=== PATIENT | male | born 1935 | race Hispanic/Latino ===

== ENCOUNTER → 2018-08-23 | Outpatient (CLI) | payer MEDICARE ==
[~2018-08-23] MED LIST: Z.0.CARVEDILOL3.125 PO; Z.0.DIGOXIN125 MCG PO; Z.0.FOLIC ACID1 MG PO; Z.0.FUROSEMIDE40 MG PO; Z.0.MULTIVITAMINS1 E; Z.0.RAMIPRIL5 MG PO; Z.0.SIMVASTATIN20 MG PO; Z.0.SPIRONOLACTONE25 PO; Z.0.WARFARIN SODIUM5 PO; Z.2.FERROUS SULFAT32 PO; [UNRECOGNIZED DRUG - OTHER] PO
--- NOTE | 2018-08-23 14:00 | Diagnostic Imaging Report ---
EXAMINATION: ABDOMEN-1VIEW (KUB) INDICATION: Follow-up stone. COMPARISON: KUB 12/15/2011. FINDINGS: Bowel gas partially obscures visualization of the kidneys. Interval removal of left sided internal ureteral stent. Fragmented left upper pole renal calculi measuring up to 2.0 x 1.7 cm aggregate is noted. Additional 3-4 mm left lower pole renal calcifications are present. No evidence of calcifications overlying the expected course of the ureters. There is a nonobstructive bowel gas pattern. There is no free intraperitoneal air. No acute bony findings. Mild degenerative changes of the lumbar spine and bilateral hips. IMPRESSION: Fragmented left upper pole renal calculus measuring up to 2.0 x 1.7 cm and additional 3-4 mm left lower pole renal stones. Signed by: Dr. Jose David Sanders MD on 08/23/2018 1:57 PM
== END ==
LOC: RAD 13:07
PROVIDERS: ATTEND Urology
DX: N20.0 Calculus of kidney (principal)
CPT/HCPCS: 74018

== ENCOUNTER → 2018-09-24 | Outpatient (CLI) | payer MEDICARE ==
[~2018-09-24] MED LIST changes: +IOPAMIDOL 370 MG/ML 200 ML INFUS..BTL INJ ONE; +SODIUM CHLORIDE 0.9% 50ML 50 ML ONE
--- NOTE | 2018-09-24 09:50 | Diagnostic Imaging Report ---
EXAMINATION: CHEST 2 VIEWS INDICATION: ^[id number] ^0900 ^MALIGNANT NEOPLASM OF PROSTATE COMPARISON: None available. FINDINGS: PA and lateral views TUBES and LINES: None. LUNGS: Lungs are well inflated. 0.6 cm left upper lobe nodular density, probably calcified granuloma. There is no evidence of pneumonia or pulmonary edema. PLEURA: No pleural effusion or pneumothorax. HEART AND MEDIASTINUM: The cardiomediastinal silhouette is mildly enlarged. Aorta is calcified and mildly tortuous. BONES AND SOFT TISSUES: No acute osseous lesion. Degenerative changes of thoracic spine. Soft tissues are unremarkable. UPPER ABDOMEN: No free air under the diaphragm. IMPRESSION: No acute thoracic abnormality. 0.6 cm left upper lobe nodular density, probably a calcified granuloma. For evaluation of metastatic disease, recommend chest CT. Signed by: Dr. Kenny Vega MD on 09/24/2018 9:47 AM
[2018-09-24 09:52] LABS: BLOOD UREA NITROGEN 19 mg/dL (7-26); BUN/CREATININE RATIO 23 (6-25); CREATININE, SERUM 0.83 mg/dL (0.72-1.25); EST GLOMERULAR FILTRATION RATE > 60 ML/MIN (60-)
--- NOTE | 2018-09-24 10:48 | Diagnostic Imaging Report ---
EXAM: CT Abdomen and Pelvis WITH contrast INDICATION: Prostate cancer COMPARISON: KUB 08/23/2018. Report from CT abdomen/pelvis 10/27/2011, however the images are not available for review at the time of the dictation. TECHNIQUE: Abdomen and pelvis were scanned utilizing a multidetector helical scanner from the lung base to the pubic symphysis after administration of IV contrast. Coronal and sagittal reformations were obtained. Routine protocol was performed. Dose modulation, iterative reconstruction, and/or weight based adjustment of the mA/kV was utilized to reduce the radiation dose to as low as reasonably achievable. IV CONTRAST: 100 cc of Isovue 370 RADIATION DOSE: Total DLP: 189 mGy*cm COMPLICATIONS: None FINDINGS: LINES and TUBES: None. LOWER THORAX: Patchy dependent atelectasis in the lower lobes. There is soft tissue density in the right lower lobe measuring up to 1.6 cm with a somewhat triangular contour and associated linear opacity, likely representing an area of scarring and atelectasis given mild volume loss. While images are not available for review, a similar opacity was noted on report from CT abdomen on 10/27/2011. Cardiomegaly. HEPATOBILIARY: No focal hepatic lesions. No biliary ductal dilation. GALLBLADDER: No radio-opaque stones or sludge. No wall thickening. SPLEEN: No splenomegaly. PANCREAS: No focal masses or ductal dilatation. ADRENALS: No adrenal nodules KIDNEYS/URETERS: There are fragmented calculi in the left upper pole, largest measuring up to 1.4 cm. There is focal hydronephrosis in the left upper pole. Punctate additional 1 to 2 mm left mid and lower pole renal stones. No evidence of right-sided hydronephrosis. GI TRACT: No abnormal distention or evidence of bowel obstruction. There is scattered colonic diverticulosis without CT evidence of diverticulitis. Appendix is normal. Apparent mild thickening of the cecum and ascending colon may reflect underdistention. PELVIC ORGANS/BLADDER: The bladder is unremarkable. Prostatomegaly measuring up to 4.4 cm. LYMPH NODES: No lymphadenopathy. VESSELS: Moderate atherosclerotic calcifications of the abdominal aorta and branch vessels. PERITONEUM / RETROPERITONEUM: No free air or fluid. BONES/SOFT TISSUES: No suspicious lytic or blastic lesions. No acute osseous abnormality. Fat-containing right inguinal hernia. Small right hydrocele. IMPRESSION: No specific evidence of metastatic disease in the abdomen or pelvis. Fragmented left upper pole renal calculi measuring up to 1.4 cm with focal left upper pole hydronephrosis. Additional 1-2 mm non-obstructing renal stones. Right lower lobe soft tissue density with associated volume loss and linear opacity, which may represent a combination of scarring and atelectasis. While images are not available for review, a similar opacity was noted on report from CT abdomen on 10/27/2011. Signed by: Dr. Jose David Sanders MD on 09/24/2018 10:44 AM
== END ==
LOC: CT 08:35
PROVIDERS: ATTEND Urology
DX: C61 Malignant neoplasm of prostate (principal)
CPT/HCPCS: 36415; 71046; 74177; 82565; 84520; Q9967

== ENCOUNTER → 2018-11-08 | Day surgery (SDC) | payer MEDICARE ==
[2018-11-06 09:52] LABS: BASOPHILS % 0.4 % (0.0-1.0); EOSINOPHILS # (AUTO) 0.4 (0.0-0.4); EOSINOPHILS % 8.1 % (0.0-6.0); HEMATOCRIT 42.3 % (38.2-49.6); HEMOGLOBIN 13.6 g/dL (14.0-18.0); LYMPHOCYTES % 22.7 % (18.0-39.1); MEAN CORPUSCULAR HEMOGLOBIN 28.8 pg (28-32); MEAN CORPUSCULAR HGB CONC 32.2 g/dL (31-35); MEAN CORPUSCULAR VOLUME 89.4 fL (81-99); MONOCYTES # (AUTO) 0.5 (0.2-0.8); MONOCYTES % 11.2 % (4.4-11.3); NEUTROPHILS # (AUTO) 2.6 (2.1-6.9); NEUTROPHILS % 57.4 % (38.7-80.0); PLATELET COUNT 130 x10e3/uL (140-360); RED BLOOD COUNT 4.73 x10e6/uL (4.3-5.7); RED CELL DISTRIBUTION WIDTH 13.9 % (11.7-14.4)
[2018-11-06 10:09] LABS: ANION GAP 13.9 mmol/L (8-16); BLOOD UREA NITROGEN 18 mg/dL (7-26); BUN/CREATININE RATIO 21 (6-25); CALCIUM 9.5 mg/dL (8.4-10.2); CARBON DIOXIDE 26 mmol/L (22-29); CHLORIDE 102 mmol/L (98-107); CREATININE, SERUM 0.87 mg/dL (0.72-1.25); EST GLOMERULAR FILTRATION RATE > 60 ML/MIN (60-); GLUCOSE 105 mg/dL (74-118); POTASSIUM 4.9 mmol/L (3.5-5.1); SODIUM 137 mmol/L (136-145)
--- NOTE | 2018-11-06 10:51 | Diagnostic Imaging Report ---
EXAM: ABDOMEN-1VIEW (KUB) DATE: 11/06/2018 9:25 AM INDICATION: Kidney stones COMPARISON: CT abdomen/pelvis, 09/24/2018 FINDINGS: 2 supine views of the abdomen show a normal distribution of air in the small and large bowel. There are small clustered calculi at the upper pole left kidney with overall diameter of 2.2 cm. Apparently this represents a fragmented calculus as noted on previous CT. No other abnormal soft tissue calcifications are seen although the renal areas are obscured by extensive stool in the colon. No obvious calcifications are seen along the expected path of either ureter. No acute bony abnormality. Degenerative changes seen in the lumbar spine and hips. There is linear atelectasis or scarring at the right lung base. IMPRESSION: Small calculus fragments are seen at the upper pole left kidney. No other abnormal calcifications are seen, noting that the renal areas are largely obscured by bowel content. Signed by: Dr. Rush Pimentel M.D. on 11/06/2018 10:48 AM
--- NOTE | 2018-11-06 10:55 | Diagnostic Imaging Report ---
EXAM: CHEST 2 VIEWS DATE: 11/06/2018 9:23 AM INDICATION: Preadmit, kidney stones COMPARISON: Chest x-ray, 09/24/2018 FINDINGS: Lines and tubes: None Heart size normal. There is patchy airspace opacity at the right lung base. 6 mm density again seen in the left upper lobe, likely granuloma based on density. No pleural effusion or pneumothorax. Upper abdomen unremarkable. No acute bony abnormality. IMPRESSION: Patchy airspace opacity has developed at the right lung base, likely representing atelectasis although, in the proper clinical setting, early pneumonia is a consideration. Signed by: Dr. Rush Pimentel M.D. on 11/06/2018 10:51 AM
[~2018-11-08] MED LIST changes: +ACETAMINOPHEN 1000 MG/100 ML IV ONE; +ASPIR 8181 MG PO; +BELLADONNA/OPIUM 30 MG SUPP RC ONE; +CEFTRIAXONE SOD 1 GM/NS 50 ML 50 ML IV ONE; +DESFLURANE 240 ML BTL INH ONE; -IOPAMIDOL 370 MG/ML 200 ML INFUS..BTL INJ ONE; +IOPAMIDOL 610MG/1ML 300 MG/ML VIAL IV ONE; +LIDOCAINE HCL 2% LOCAL INJ 5 ML SDV VIAL INJ ONE; +METFORMIN HCL500 MG PO; +PROPOFOL IV EMULSION 10 MG/ML 20 ML VIAL ONE; -SODIUM CHLORIDE 0.9% 50ML 50 ML ONE
--- OUTSIDE RECORDS SUMMARY | 2018-11-08 05:23 | XMS REPORT ---
Author Author [facility] Address Unknown Phone Unavailable Care Team Providers Care Contact Center Director Name Role Phone CRISTINA SON Unavailable Unavailable Problems This patient has no known problems. Allergies, Adverse Reactions, Alerts This patient has no known allergies or adverse reactions. Medications This patient has no known medications. Results Test Description Test Time Test Comments Text Results Atomic Results Result Comments CHEST 2 VIEWS 2018-11-06 10:48:00 [place] [address] Patient Name: JR NICHOLSON MR #: [id number] : 1935 Age/Sex: 83/M Req #: [id number] Adm Physician: Ordered by: CRISTINA SON MD Report #: [id number] Location: OR Room/Bed: Procedure: [id number] DX/CHEST 2 VIEWS Exam Date: 11/06/18 Exam Time: 0930 REPORT STATUS: Signed EXAM: CHEST 2 VIEWS DATE: 11/06/2018 9:23 AM INDIC ATION: Preadmit, kidney stones COMPARISON: Chest x-ray, 09/24/2018 FINDINGS: Lines and tubes: None Heart size normal. There is patchy airspace opacity at the right lung base. 6 mm density again seen in the left upper lobe, likely granuloma based on density. No pleural effusion or pneumothorax. Upper abdomen unremarkable. No acute bony abnormality. IMPRESSION: Patchy airspace opacity has developed at the right lung base, likely representing atelectasis although, in the proper clinical setting, early pneumonia is a consideration. Signed by: Dr. Jaxon Burgess M.D. on 11/06/2018 10:51 AM Dictated By: JXAON BURGESS MD 105 Transcribed By: SHELLEY on 11/06/18 105 COPY TO: CRISTINA SON MD ABDOMEN-1VIEW (KUB) 2018-11-06 10:44:00 [place] [address] Patient Name: JR NICHOLSON MR #: [id number] : 1935 Age/Sex: 83/M Req #: [id number] Adm Physician: Ordered by: CRISTINA SON MD Report #: [id number] Location: OR Room/Bed: Procedure: [id number] DX/ABDOMEN-1VIEW (KUB) Exam Date: 11/06/18 Exam Time: 0930 REPORT STATUS: Signed EXAM: ABDOMEN-1VIEW (KUB) DATE: 11/06/2018 9:25 AM INDICATION: Kidney stones COMPARISON: CT abdomen/pelvis, 09/24/2018 FINDINGS: 2 supine views of the abdomen show a normal distribution of air in the small and large bowel. There are small clustered calculi at the upper pole left kidney with overall diameter of 2.2 cm. Apparently this represents a fragmented calculus as noted on previous CT. No other abnormal soft tissue calcifications are seen although the renal areas are obscured by extensive stool in the colon. No obvious calcifications are seen along the expected path of either ureter. No acute bony abnormality. Degenerative changes seen in the lumbar spine and hips. There is linear atelectasis or scarring at the right lung base. IMPRESSION: Small calculus fragments are seen at the upper pole left kidney. No other abnormal calcifications are seen, noting that the renal areas are largely obscured by bowel content. Signed by: Dr. Jaxon Burgess M.D. on 11/06/2018 10:48 AM Dictated By: JAXON BURGESS MD 104 Transcribed By: SHELLEY on 11/06/181047 COPY TO: CRISTINA SON MD CT ABDOMEN/PELVIS W 2018-09-24 10:30:00 [place] [address] Patient Name: JR NICHOLSON MR #: [id number] : 1935 Age/Sex: 83/M Req #: [id number] Adm Physician: Ordered by: CRISTINA SON MD Report #: [id number] Location: CT Room/Bed: Procedure: [id number] CT/CT ABDOMEN/PELVIS W Exam Date: 09/24/18 Exam Time: 1000 REPORT STATUS: Signed EXAM: CT Abdomen and Pelvis WITH contrast INDIC ATION: Prostate cancer COMPARISON: KUB 08/23/2018. Report from CT abdomen/pelvis 10/27/2011, however the images are not available for review at the time of the dictation. TECHNIQUE: Abdomen and pelvis were scanned utilizing a multidetector helical scanner from the lung base to the pubic symphysis after administration of IV contrast. Coronal and sagittal reformations were obtained. Routine protocol was performed. Dose modulation, iterative reconstruction, and/or weight based adjustment of the mA/kV was utilized to reduce the radiation dose to as low as reasonably achievable. IV CONTRAST: 100 cc of Isovue 370 RADIATION DOSE: Total DLP: 189 mGy*cm COMPLICATIONS: None FINDINGS: LINES and TUBES: None. LOWER THORAX: Patchy dependent atelectasis in the lower lobes. There is soft tissue density in the right lower lobe measuring up to 1.6 cm with a somewhat triangular contour and associated linear opacity, likely representing an area of scarring and atelectasis given mild volume loss. While images are not available for review, a similar opacity was noted on report from CT abdomen on 10/27/2011. Cardio megaly. HEPATOBILIARY: No focal hepatic lesions. No biliary ductal dilation. GALLBLADDER: No radio-opaque stones or sludge. No wall thickening. SPLEEN: No splenomegaly. PANCREAS: No focal masses or ductal dilatation. ADRENALS: No adrenal nodules KIDNEYS/URETERS: There are fragmented calculi in the left upper pole, largest measuring up to 1.4 cm. There is focal hydronephrosis in the left upper pole. Punctate additional 1 to 2 mm left mid and lower pole renal stones. No evidence of right-sided hydronephrosis. GI TRACT: No abnormal distention or evidence of bowel obstruction. There is scattered colonic diverticulosis without CT evidence of diverticulitis. Appendix is normal. Apparent mild thickening of the cecum and ascending colon may reflect underdistention. PELVIC ORGANS/BLADDER: The bladder is unremarkable. Prostatomegaly measuring up to 4.4 cm. LYMPH NODES: No lymphadenopathy. VESSELS: Moderate atherosclerotic calcifications of the abdominal aorta and branch vessels. PERITONEUM / RETROPERITONEUM: No free air or fluid. BONES/SOFT TISSUES: No suspicious lytic or blastic lesions. No acute osseous abnormality. Fat- containing right inguinal hernia. Small right hydrocele. IMPRESSION: No specific evidence of metastatic disease in the abdomen or pelvis. Fragmented left upper pole renal calculi measuring up to 1.4 cm with focal left upper pole hydronephrosis. Additional 1-2 mm non-obstructing renal stones. Right lower lobe soft tissue density with associated volume loss and linear opacity, which may represent a combination of scarring and atelectasis. While images are not available for review, a similar opacity was noted on report from CT abdomen on 10/27/2011. Signed by: Dr. Cristian Bell MD on 09/24/2018 10:44 AM Dictated By: CRISTIAN BELL MD 1044 Transcribed By: SHELLEY on 09/24/18 1044 COPY TO: CRISTINA BILLINGS MD CHEST 2 VIEWS 2018-09-24 09:44:00 [place] [address] Patient Name: JR NICHOLSON MR #: [id number] : 1935 Age/Sex: 83/M Req #: [id number] Adm Physician: Ordered by: CRISTINA SON MD Report #: [id number] Location: CT Room/Bed: Procedure: [id number] DX/CHEST 2 VIEWS Exam Date: 09/24/18 Exam Time: 899 REPORT STATUS: Signed EXAMINATION: CHEST 2 VIEWS INDICATION: 2018 107 [id number] MALIGNANT NEOPLASM OF PROSTATE COMPARISON: None available. FINDINGS: PA and lateral views TUBES and LINES: None. LUNGS: Lungs are well inflated. 0.6 cm left upper lobe nodular density, probably calcified granuloma. There is no evidence of pneumonia or pulmonary edema. PLEURA: No pleural effusion or pneumothorax. HEART AND MEDIASTINUM: The cardiomediastinal silhouette is mildly enlarged. Aorta is calcified and mildly tortuous. BONES AND SOFT TISSUES: No acute osseous lesion. Degenerative changes of thoracic spine. Soft tissues are unremarkable. UPPER ABDOMEN: No free air under the diaphragm. IMPRESSION: No acute thoracic abnormality. 0.6 cm left upper lobe nodular density, probably a calcified granuloma. For evaluation of metastatic disease, recommend chest CT. Signed by: Dr. Kenny Delgado MD on 09/24/2018 9:47 AM Dictated By: KENNY DELGADO MD 0947 Transcribed By: SHELLEY on 09/24/18 0947 COPY TO: CRISTINA SON MD ABDOMEN-1VIEW (KUB) 2018-08-23 13:52:00 [facility] [address] [place] [place] [address] Patient Name: JR NICHOLSON MR #: [id number] : 1935 Age/Sex: 83/M Req #: [id number] Adm Physician: Ordered by: CRISTINA SON MD Report #: [id number] Location: [facility] Room/Bed: Procedure: [id number] DX/ABDOMEN-1VIEW (KUB) Exam Date: 08/23/18 Exam Time: 1322 REPORT STATUS: Signed EXAMINATION: ABDOMEN-1VIEW (KUB) INDICATION: Follow-up stone. COMPARISON: KUB 12/15/2011. FINDINGS: Bowel gas partially obscures visualization of the kidneys. Interval removal of left sided internal ureteral stent. Fragmented left upper pole renal calculi measuring up to 2.0 x 1.7 cm aggregate is noted. Additional 3-4 mm left lower pole renal calcifications are present. No evidence of calcifications overlying the expected course of the ureters. There is a nonobstructive bowel gas pattern. There is no free intraperitoneal air. No acute bony findings. Mild degenerative changes of the lumbar spine and bilateral hips. IMPRESSION: Fragmented left upper pole renal calculus measuring up to 2.0 x 1.7 cm and additional 3-4 mm left lower pole renal stones. Signed by: Dr. Cristian Bell MD on 08/23/2018 1:57 PM Dictated By: CRISTIAN BELL MD [id number] Transcribed By: SHELLEY on 08/23/18 0240 COPY TO: CRISTINA SON MD
[2018-11-08 09:30] VITALS: BP 142/62
--- NOTE | 2018-11-18 03:11 | Operative Report ---
DATE OF PROCEDURE: 11/08/2018 SURGEON: Glen Lopez MD PREOPERATIVE DIAGNOSES: 1. Left nephrolithiasis. 2. Left hydronephrosis. POSTOPERATIVE DIAGNOSES: 1. Left nephrolithiasis. 2. Left hydronephrosis. OPERATIONS PERFORMED: 1. Left-sided extracorporeal shockwave lithotripsy (separate staged procedure performed for the left nephrolithiasis). 2. Cystourethroscopy with bilateral ureteral catheterization and retrograde pyelography (surgery performed to delineate the anatomy). 3. Interpretation of retrograde ureteropyelography. 4. Cystourethroscopy and insertion of left indwelling ureteral stent (surgery performed to resolve the hydronephrosis). ANESTHESIA: General. COMPLICATIONS: None. CLINICAL SUMMARY: Satya Medina is an 83-year-old man with high-grade prostate cancer, who has deferred treatment due to financial concerns and inability to afford his cancer medications. The patient is status post transurethral resection of the prostate. He is brought for stone management. He is aware of the risks of bleeding, infection, injury to adjacent structures, need for additional procedures and elected to proceed. OPERATIVE PROCEDURE IN DETAIL: Informed consent was verified. Satya Medina was properly identified, taken to the operating room, and placed on the lithotripsy table in supine position. Anesthesia was uneventfully begun. The patient's left nephrolithiasis was localized with biplanar fluoroscopy. This large upper calyceal stone was then fragmented with 3000 shocks. The patient was then carefully and gently repositioned in dorsal lithotomy position with all pressure points well padded. The genitalia were prepared and draped in usual sterile fashion. The cystoscope sheath with the visual obturator in place was atraumatically inserted into the patient's urethra, it was guided down the urethra, which exhibited some wide caliber stricturing that was not clinically significant. We passed a normal sphincteric region, went through the prostate bed, which was wide open status post transurethral resection of prostate. We entered the patient's bladder. Panendoscopy revealed trabeculations with no tumors, no stones, and no diverticula, normally positioned and configured ureteral orifices were identified. The ureteral catheter was used to cannulate each ureter and retrograde ureteropyelograms were performed. With cystoscopic and fluoroscopic guidance, the left-sided indwelling ureteral stent was then placed. It was curled in the upper pole hydronephrotic calyx on the left-hand side as well as the patient's bladder. The retaining suture was cut short. Interpretation of Retrograde Ureteropyelography: Contrast was instilled in retrograde fashion bilaterally. On the right side, there were no tumors, no stones, no diverticula. Unobstructed drainage was observed fluoroscopically. On the left hand side, there was hydronephrosis of the upper pole calyx with multiple filling defects. The stent was in good position, coiled the patient's kidneys as well as the patient's bladder at the end of the case. The patient's bladder was drained and the cystoscope was withdrawn. Digital rectal examination with placement of belladonna and opium suppositories revealed a greater than 40 g prostate that is smooth, nonfunctional without any nodules. The patient was then uneventfully reversed from anesthesia and taken to recovery room in stable condition. There were no complications to the procedure. He tolerated the procedure well. Exclusive postoperative instructions were given and we will follow the patient up in the office. Glen Lopez MD OH/MODL /[id number] cc: Nighat Rodriguez MD
== END | disposition home or self-care (01) ==
LOC: OR 05:19
PROVIDERS: ATTEND Urology
DX: N13.2 Hydronephrosis with renal and ureteral calculous obstruction (principal); I10 Essential (primary) hypertension; E11.9 Type 2 diabetes mellitus without complications; Z79.84 Long term (current) use of oral hypoglycemic drugs; Z01.810 Encounter for preprocedural cardiovascular examination; Z01.812 Encounter for preprocedural laboratory examination; Z01.811 Encounter for preprocedural respiratory examination
CPT/HCPCS: 36415 ×2; 50590; 52332; 71046; 74018; 80048; 82948; 85025; 93005; C2617; J0131; J0696; J2001; J2704; Q9967

== ENCOUNTER → 2019-02-07 | Day surgery (SDC) | payer MEDICARE ==
[2019-02-05 14:44] LABS: BASOPHILS % 0.5 % (0.0-1.0); EOSINOPHILS # (AUTO) 0.3 (0.0-0.4); HEMATOCRIT 40.5 % (38.2-49.6); HEMOGLOBIN 12.9 g/dL (14.0-18.0); LYMPHOCYTES # (AUTO) 1.4 (1.0-3.2); LYMPHOCYTES % 24.1 % (18.0-39.1); MEAN CORPUSCULAR HGB CONC 31.9 g/dL (31-35); MONOCYTES # (AUTO) 0.7 (0.2-0.8); MONOCYTES % 12.7 % (4.4-11.3); NEUTROPHILS # (AUTO) 3.3 (2.1-6.9); NEUTROPHILS % 57.4 % (38.7-80.0); PLATELET COUNT 164 x10e3/uL (140-360); RED BLOOD COUNT 4.45 x10e6/uL (4.3-5.7); RED CELL DISTRIBUTION WIDTH 14.2 % (11.7-14.4)
[2019-02-05 15:06] LABS: ANION GAP 14.7 mmol/L (8-16); BLOOD UREA NITROGEN 22 mg/dL (7-26); BUN/CREATININE RATIO 22 (6-25); CARBON DIOXIDE 28 mmol/L (22-29); CHLORIDE 106 mmol/L (98-107); CREATININE, SERUM 0.99 mg/dL (0.72-1.25); EST GLOMERULAR FILTRATION RATE > 60 ML/MIN (60-); GLUCOSE 116 mg/dL (74-118); POTASSIUM 4.7 mmol/L (3.5-5.1); SODIUM 144 mmol/L (136-145)
[~2019-02-07] MED LIST changes: -ACETAMINOPHEN 1000 MG/100 ML IV ONE; +B&O 60MG R/S 60 MG SUPP PR ONE; -BELLADONNA/OPIUM 30 MG SUPP RC ONE; -DESFLURANE 240 ML BTL INH ONE; +DEXAMETHASONE SOD PHOS INJ 4 MG/ML VIAL ONE; +EPHEDRINE SULFATE INJ 50 MG/10 ML SYR ONE; +FENTANYL CITRATE/PF 100MCG/2 ML INJ ONE; +GENTAMICIN 80MG/NS 100 ML 100 ML IV ONE; +GLYCOPYRROLATE INJ 1MG/ 5 ML SYR ONE; +ONDANSETRON HCL INJ 2MG/ML 2ML 2 MG/ML VIAL ONE; +SEVOFLURANE INHAL SOLN 250 ML PEN BTL ONE
[2019-02-07 13:45] VITALS: BP 143/87
--- NOTE | 2019-03-26 04:00 | Operative Report ---
DATE OF PROCEDURE: 02/07/2019 SURGEON: Glen Lopez MD PREOPERATIVE DIAGNOSES: 1. Left nephrolithiasis. 2. Left indwelling ureteral stent. POSTOPERATIVE DIAGNOSES: 1. Left nephrolithiasis. 2. Left indwelling ureteral stent. OPERATIONS PERFORMED: Note: These were all staged procedures as part of a multi-stage and multi-step process of managing the patient's urolithiasis. 1. Cystourethroscopy with complicated removal of left indwelling ureteral stent (separate procedure performed for further diagnosis of stent under separate scope). 2. Left complicated ureteropyeloscopy with holmium laser lithotripsy (separate procedure performed for the nephrolithiasis done with separate scope). 3. Radiological services for supervision and interpretation of ureteroscopy. 4. Interpretation of retrograde ureteropyelography. 5. Supervision of fluoroscopy, no radiologist present. ANESTHESIA: General. COMPLICATIONS: None. CLINICAL SUMMARY: Satya Medina is an 83-year-old man with prostate cancer. He has not allowed us to treat his prostate cancer as we recommended. The patient has had left-sided nephrolithiasis. He has undergone prior stone procedures. He is brought to the operating room to remove his stent and hopefully render him stent free and stone free. He understands the risks of bleeding, infection, injury to adjacent structures, need for further procedures and elected to proceed. OPERATIVE PROCEDURE IN DETAIL: Informed consent was verified. Satya Medina was properly identified, taken to the operating room, placed on the cystoscopy table in supine position. Anesthesia was uneventfully begun. The patient was then carefully and gently repositioned in the dorsal lithotomy position with all pressure points well padded. His genitalia were prepared and draped in usual sterile fashion. A 22.5-Indian cystoscope sheath with the visual obturator in place was atraumatically inserted into the patient's urethra. It was guided down the unremarkable distal urethra to the bulbar region where there was a wide caliber probably not clinically significant stricture. We went through the normal sphincteric region, went into the patient's prostate bed, which was status post transurethral resection. Went into the patient's bladder, we identified the stent emerging from the left ureteral orifice and guidewire was placed alongside this stent and guided with the patient's kidney. The stent was then grasped completely removed and discarded. The flexible ureteroscope was then brought up over the guidewire and guided to the level of the patient's kidney. Contrast was injected. 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 There were dozens of upper pole calyceal stones. Guidewire was left in place. Flexible ureteroscopy sheath was atraumatically inserted and guided to the level of the patient's proximal ureter. We then made callus passes with a flexible uteroscope at which time grabbing the stone from the upper pole calyx and extracting it. This procedure performed numerous times until no significantly sized stone fragments remained in the upper pole. Only fine sand remained and it was cut and was irrigated free from the mucosa, so that it may pass if the infundibular stenosis does not recur. We identified the stone that was embedded in the lower pole calyx. The angle was too acute to be able to dislodge the stone and it was too acute to laser the stone due to the fact that the ureteroscope would not flex at an angle acute enough to handle this lower pole stone with this most unfavorable ureteral calyceal angle. We decided not to leave the patient with a stent due to the fact that there was no trauma to the ureter. There was a well dilated ureter and we utilized a flexible ureteroscopy sheath to protect the ureter from all the ureteroscopic passes. We carefully examined the ureter we exited and it was unremarkable with no tumors, no stones, no strictures, no sign of injury. The patient's bladder was drained. The cystoscope was withdrawn. Belladonna and opium suppository were placed revealing 40 g prostate that is smooth, non-fluctuant without any nodules. The patient was then uneventfully reversed from anesthesia and taken to the recovery room in stable condition. Expressive postop instructions were given. We will plan to follow the patient up in the office for a Lupron injection of hormone therapy. Instructed the patient's family as well as the patient that he needs to manage his prostate cancer to the fact that a significant amount of disease despite his age. His high functional state is also a reason to treat his cancer. Glen Lopez MD [place]/MODL /[id number] cc: Nighat Rodriguez MD
== END | disposition home or self-care (01) ==
LOC: OR 09:17
PROVIDERS: ATTEND Urology
DX: N20.0 Calculus of kidney (principal); C61 Malignant neoplasm of prostate; Z96.0 Presence of urogenital implants; E11.9 Type 2 diabetes mellitus without complications; I25.10 Atherosclerotic heart disease of native coronary artery without angina pectoris; I10 Essential (primary) hypertension; Z01.812 Encounter for preprocedural laboratory examination; Z79.82 Long term (current) use of aspirin; Z79.84 Long term (current) use of oral hypoglycemic drugs
CPT/HCPCS: 36415 ×2; 52352; 74420; 80048; 82948; 85025; 88300; C1766; J0696; J1100; J1580; J2001; J2405; J2704; J3490; Q9967; J3010

== ENCOUNTER → 2020-09-30 | Outpatient (CLI) | payer MEDICARE ==
[~2020-09-30] MED LIST changes: -B&O 60MG R/S 60 MG SUPP PR ONE; -CEFTRIAXONE SOD 1 GM/NS 50 ML 50 ML IV ONE; -DEXAMETHASONE SOD PHOS INJ 4 MG/ML VIAL ONE; -EPHEDRINE SULFATE INJ 50 MG/10 ML SYR ONE; -FENTANYL CITRATE/PF 100MCG/2 ML INJ ONE; -GENTAMICIN 80MG/NS 100 ML 100 ML IV ONE; -GLYCOPYRROLATE INJ 1MG/ 5 ML SYR ONE; -IOPAMIDOL 610MG/1ML 300 MG/ML VIAL IV ONE; -LIDOCAINE HCL 2% LOCAL INJ 5 ML SDV VIAL INJ ONE; -ONDANSETRON HCL INJ 2MG/ML 2ML 2 MG/ML VIAL ONE; -PROPOFOL IV EMULSION 10 MG/ML 20 ML VIAL ONE; -SEVOFLURANE INHAL SOLN 250 ML PEN BTL ONE
== END ==
LOC: RAD 12:02
PROVIDERS: ATTEND Urology
DX: N20.0 Calculus of kidney (principal)
CPT/HCPCS: 74018